=== PATIENT | female | born 1960 | race Caucasian/White ===

== ENCOUNTER 2017-09-05 16:55 | Emergency (ER) | payer SELFPAY ==
[~2017-09-05] VITALS: Ht 172.7 cm; Wt 83.9 kg
[2017-09-05 17:04] VITALS: Ht 172.7 cm; Wt 83.9 kg
[2017-09-05 18:57] VITALS: BP 127/78
== END 2017-09-05 18:58 | disposition left against medical advice (07) ==
LOC: ED 16:55
DX: S09.90XA Unspecified injury of head, initial encounter (principal); M54.2 Cervicalgia; M54.9 Dorsalgia, unspecified; M43.10 Spondylolisthesis, site unspecified; M51.36 Other intervertebral disc degeneration, lumbar region; F17.210 Nicotine dependence, cigarettes, uncomplicated; Z71.6 Tobacco abuse counseling; Z88.8 Allergy status to other drugs, medicaments and biological substances; V49.9XXA Car occupant (driver) (passenger) injured in unspecified traffic accident, initial encounter; Y93.89 Activity, other specified; Y92.89 Other specified places as the place of occurrence of the external cause; Y99.8 Other external cause status
CPT/HCPCS: 99406